=== PATIENT | male | born 1985 ===

== ENCOUNTER 2019-03-08 17:05 | Emergency (ER) | payer MEDICAID ==
[~2019-03-08] VITALS: Ht 172.7 cm; Wt 77.3 kg
[2019-03-08] MEDS ORDERED: CHOL50004 PO (17:29)
[2019-03-08] MEDS ORDERED: OMEG-53 PO (17:29)
[2019-03-08] MEDS ORDERED: CALC625T73 PO (17:29)
[2019-03-08 19:22] VITALS: BP 130/83
== END 2019-03-08 18:46 | disposition left against medical advice (07) ==
LOC: EMS 17:11
DX: N20.0 Calculus of kidney (principal)